=== PATIENT | female | born 1970 | race Caucasian/White ===

== ENCOUNTER → 2016-12-16 | Outpatient (CLI) | payer BC | LOC: MC.RAD 09:17 | DX: Z12.31 Encounter for screening mammogram for malignant neoplasm of breast (principal) ==

== ENCOUNTER → 2020-04-18 | Outpatient (CLI) | payer BC | LOC: MC.RAD 08:15 | DX: Z12.31 Encounter for screening mammogram for malignant neoplasm of breast (principal) ==

== ENCOUNTER 2020-07-06 21:05 | Emergency (ER) | payer BC ==
[~2020-07-06] VITALS: Ht 165.1 cm; Wt 97.7 kg
[2020-07-06 21:16] VITALS: TEMP 97.6
[2020-07-06 21:40] LABS: BASO # 0.1 (0.0-0.2); BASO % 0.5 % (0.0-2.0); EOS # 0.1 (0.0-0.7); EOS % 0.9 % (0-4.0); GRAN # 6.6 (1.4-6.5); GRAN % 67.8 % (42.2-75.2); HEMATOCRIT 43.8 % (37.0-47.0); HEMOGLOBIN 14.6 g/dl (12.5-16.0); LYMPH # 2.2 (1.2-3.4); LYMPH % 22.9 % (20.0-51.0); MEAN CELL VOLUME 91 fl (80.0-100.0); MEAN CORPUSCULAR HEMOGLOBIN 30 pg (27.0-31.0); MEAN CORPUSCULAR HGB CONC 33 g/dl (33.0-37.0); MONO # 0.7 (0.1-0.6); MONO % 7.6 % (1.7-9.3); PLATELET COUNT 412 K/mm3 (130-400); RED BLOOD COUNT 4.83 M/mm3 (4.10-5.30); REDCELL DISTRIBUTION WIDTH-CV 12.2 % (11.5-14.5)
[2020-07-06 21:53] LABS: ALBUMIN 4.4 gm/dL (3.5-5.0); BILIRUBIN,TOTAL 0.4 mg/dL (0.0-1.0); CALCIUM 9.5 mg/dL (8.4-10.2); CREATININE, serum 0.56 (0.52-1.25); POTASSIUM 3.9 mmol/L (3.4-5.0); TOTAL PROTEIN 7.6 gm/dL (6.4-8.2)
[2020-07-06 23:09] VITALS: BP 149/79; PULSE 82
== END 2020-07-06 23:09 | disposition home or self-care (01) ==
LOC: COL.ER 21:05
PROVIDERS: Emergency Medicine
DX: K80.20 Calculus of gallbladder without cholecystitis without obstruction (principal)
CPT/HCPCS: J2270; J2405; Q9967

== ENCOUNTER → 2020-07-09 | Outpatient (CLI) | payer BC | LOC: COL.RAD 08:25 | DX: K80.20 Calculus of gallbladder without cholecystitis without obstruction (principal) ==

== ENCOUNTER → 2020-08-29 | Outpatient (CLI) | payer BC | LOC: ZCOL.LAB 13:54 | DX: R07.89 Other chest pain (principal) ==

== ENCOUNTER 2020-09-02 20:28 | Emergency (ER) | payer BC ==
[~2020-09-02] VITALS: Ht 165.1 cm; Wt 88.6 kg
[2020-09-02 20:30] VITALS: TEMP 98.4
[2020-09-02 21:09] LABS: BASO # 0.1 (0.0-0.2); BASO % 0.7 % (0.0-2.0); EOS # 0.3 (0.0-0.7); EOS % 3.2 % (0-4.0); GRAN # 4.6 (1.4-6.5); GRAN % 55.8 % (42.2-75.2); HEMATOCRIT 39.5 % (37.0-47.0); HEMOGLOBIN 13.4 g/dl (12.5-16.0); LYMPH # 2.4 (1.2-3.4); LYMPH % 29.7 % (20.0-51.0); MEAN CELL VOLUME 90 fl (80.0-100.0); MEAN CORPUSCULAR HEMOGLOBIN 30 pg (27.0-31.0); MEAN CORPUSCULAR HGB CONC 34 g/dl (33.0-37.0); MEAN PLATELET VOLUME 9.5 fl (7.4-10.4); MONO # 0.9 (0.1-0.6); MONO % 10.5 % (1.7-9.3); PLATELET COUNT 368 K/mm3 (130-400); RED BLOOD COUNT 4.41 M/mm3 (4.10-5.30); REDCELL DISTRIBUTION WIDTH-CV 12.2 % (11.5-14.5)
[2020-09-02 21:18] LABS: INR 1.1 (0.8-3.0); PROTHROMBIN TIME 11.8 SECONDS (9.7-12.8)
[2020-09-02 21:20] LABS: ALANINE AMINOTRANSFERASE 90 U/L (4-34); ALBUMIN 4.2 gm/dL (3.5-5.0); ALKALINE PHOSPHATASE 98 U/L (50-136); ANION GAP 9 mmol/L (7-16); AST,SGOT 53 U/L (15-37); BILIRUBIN,TOTAL 0.5 mg/dL (0.0-1.0); BLOOD UREA NITROGEN 9 mg/dL (7-17); CALCIUM 9.3 mg/dL (8.4-10.2); CARBON DIOXIDE 25 mmol/L (22-30); CHLORIDE 103 mmol/L (98-107); CREATINE KINASE 76 U/L (30-135); GLUCOSE 132 mg/dL (74-106); LIPASE 109 U/L (23-300); POTASSIUM 3.4 mmol/L (3.4-5.0); SODIUM 137 mmol/L (137-145); TOTAL PROTEIN 7.2 gm/dL (6.4-8.2)
[2020-09-02 21:24] LABS: D-DIMER < 200.00 ng/mLDDu (200-230)
[2020-09-02 21:39] LABS: TROPONIN-I < 0.012 ng/mL (0.000-0.035)
[2020-09-02 23:30] VITALS: BP 135/70; PULSE 81
== END 2020-09-03 00:21 | disposition home or self-care (01) ==
LOC: COL.ER 20:28
PROVIDERS: Emergency Medicine
DX: R07.9 Chest pain, unspecified (principal)

== ENCOUNTER → 2021-11-16 | Outpatient (CLI) | payer BC | LOC: MC.RAD 10:52 | DX: Z12.31 Encounter for screening mammogram for malignant neoplasm of breast (principal) ==

== ENCOUNTER → 2022-12-07 | Outpatient (CLI) | payer BC | LOC: MC.RAD 11:18 | DX: Z12.31 Encounter for screening mammogram for malignant neoplasm of breast (principal) ==

== ENCOUNTER 2023-09-05 22:55 | Emergency (ER) | payer BC ==
[~2023-09-05] VITALS: Ht 162.6 cm; Wt 95.5 kg
[2023-09-05 23:19] VITALS: TEMP 98.2
[2023-09-06 00:10] VITALS: BP 144/75; PULSE 64
== END 2023-09-06 00:11 | disposition home or self-care (01) ==
LOC: COL.ER 22:55
DX: S91.201A Unspecified open wound of right great toe with damage to nail, initial encounter (principal); W22.03XA Walked into furniture, initial encounter